=== PATIENT | female | born 1955 | race Caucasian/White ===

== ENCOUNTER → 2017-11-16 | Outpatient (CLI) | payer OTHER ==
[~2017-11-16] MED LIST: AZIT-1 PO; EPIN0.3P15 IM; ESTR42.59 VG; FLU60SYR30 IM ONLY; FLUT16SP19 NS
--- NOTE | 2017-11-16 09:24 | RADIOLOGY IMAGING REPORT ---
FACILITY: [facility] - [place] PATIENT NAME: Michelle Pace : 1955 MR: [id number] V: [id number] EXAM DATE: ORDERING PHYSICIAN: JACLYN GARZA TECHNOLOGIST: Location: [facility] Patient: Michelle Pace : 1955 Visit/Account:[id number] Date of Sevice: 11/16/2017 2 VIEWS CHEST INDICATION: Cough for one month COMPARISON: None available FINDINGS: Heart size within normal limits. There is vague interstitial opacities in a perihilar distribution. No significant bronchial wall thi ckening is noted. No alveolar consolidation. No acute bony finding IMPRESSION: 1. Minimal perihilar interstitial changes which can be seen in the setting of viral bronchitis/atypi amber pneumonitis. No focal alveolar pneumonia or other acute finding Report Dictated By: Fredo Fine MD at 11/16/2017 9:18 AM Report E-Signed By: Fredo Fine MD at 11/16/2017 9:19 AM WSN:[id number]
== END ==
LOC: RAD 08:52
PROVIDERS: ATTEND Emergency Medicine
DX: R05 Cough (principal)
CPT/HCPCS: 71046

== ENCOUNTER → 2017-12-27 | Outpatient (CLI) | payer OTHER | LOC: RESP 01:15 | PROVIDERS: ATTEND Emergency Medicine | DX: G47.33 Obstructive sleep apnea (adult) (pediatric) (principal) ==

== ENCOUNTER → 2018-03-04 | Outpatient (CLI) | payer OTHER | LOC: RESP 20:59 | PROVIDERS: ATTEND Emergency Medicine | DX: G47.33 Obstructive sleep apnea (adult) (pediatric) (principal); G47.61 Periodic limb movement disorder ==

== ENCOUNTER → 2018-04-28 | Outpatient (CLI) | payer OTHER ==
[2018-04-28 08:31] LABS: PLATELET COUNT, AUTOMATED 210 K/uL (150-450)
[2018-04-28 08:46] LABS: LDL CHOLESTEROL 120 mg/dl
== END ==
LOC: LAB 08:16
PROVIDERS: ATTEND Emergency Medicine
DX: R42 Dizziness and giddiness (principal)
CPT/HCPCS: 36415; 82040; 82247; 82306; 82310; 82374; 82435; 82465; 82565; 82947; 83036; 83718; 84075; 84132; 84155; 84295; 84443; 84450; 84460; 84478; 84520; 85025

== ENCOUNTER → 2018-05-09 | Outpatient (CLI) | payer OTHER ==
[~2018-05-09] MED LIST changes: +GADOBENATE 529MG/1ML 15ML VIAL IVP ONE
--- NOTE | 2018-05-09 13:25 | RADIOLOGY IMAGING REPORT ---
FACILITY: [facility] - [place] PATIENT NAME: Michelle Pace : 1955 MR: [id number] V: [id number] EXAM DATE: ORDERING PHYSICIAN: JACLYN GARZA TECHNOLOGIST: Location: [facility] - [place] Patient: Michelle Pace : 1955 Visit/Account:[id number] Date of Sevice: 05/09/2018 BRAIN W W/O CONTRAST Provided history: Dizziness Additional pertinent history: None TECHNIQUE: Multiplanar multisequence brain MRI was performed without and with intravenous contrast Contrast dose: 13 mL of MultiHance. Additional focused sequences: none COMPARISON STUDIES: CT brain 05/20/17 FINDINGS: Brain volume: Normal Acute ischemia: None Chronic cortical and ganglionic ischemia: none significant Hemorrhage: None Masses / edema: None White matter lesions : Single peripheral T2 hyperdensity left frontal lobe is within normal limits. Vessels: There is a vessel that projects over the surface of the posterior left frontal lobe with mi ld T1 hyperintensity on the pregadolinium living series, likely related to flow-related enhancement. I doubt anything more significant. Extra-axial: None Calvarium / scalp: Negative Skull base / infratemporal fossa: negative Visualized sinuses / orbits / upper neck: Moderate rightward deviation nasal septum. No significant paranasal sinus inflammatory disease. There is at least moderate narrowing of the cervical canal C3 -4. A previous spine MRI dated 03/14/08 is off-line and unavailable for comparison. It is also not indicated on the PACS system whether it was a cervical spine or not. IMPRESSION: Normal MR of the brain. No evidence of mass, acute ischemia or hemorrhage. Potentially significant upper cervical canal central stenosis. Correlate with cervical MRI if indica elza. Report Dictated By: Constantine White MD at 05/09/2018 1:11 PM Report E-Signed By: Constantine White MD at 05/09/2018 1:20 PM WSN:[id number]
== END ==
LOC: MRI 01:56
PROVIDERS: ATTEND Emergency Medicine
DX: J34.2 Deviated nasal septum (principal); M48.02 Spinal stenosis, cervical region
CPT/HCPCS: 70553; A9577

== ENCOUNTER → 2018-06-02 | Outpatient (CLI) | payer OTHER ==
[~2018-06-02] MED LIST changes: -GADOBENATE 529MG/1ML 15ML VIAL IVP ONE
--- NOTE | 2018-06-05 21:44 | RT HOLTER TEST ---
FACILITY: [facility] - [place] PATIENT NAME: SARAH CORTEZ : [id number] MR: [id number] V: [id number] EXAM DATE: ORDERING PHYSICIAN: JACLYN GARZA TECHNOLOGIST: Melissa Hook-up date: 2018-06-02 15:12:00 Duration: 27:00:00 Test Indications: NEAR SYNCOPE Medications: in chart [id number] QRS complexes 1 Ventricular ectopics which represent <1 % of total QRS comp. 99 Supraventricular ectopics which represent <1 % of total QRS comp. * Paced QRS complexes which represent % of total QRS comp. VENTRICULAR ECTOPY 1 Isolated 0 Bigeminal Cycles 0 Couplets 0 Runs 0 Beats in Runs * Beats LONGEST at * BPM at :: -- * Beats FASTEST at * BPM at :: -- SUPRAVENTRICULAR ECTOPY 99 Isolated 0 Couplets 0 Runs 0 Beats in Runs * Beats LONGEST at * BPM at :: -- * Beats FASTEST at * BPM at :: -- HEART RATES 49 MIN at 05:25:05 2018-06-03 79 AVG 135 MAX at 14:32:25 2018-06-03 LONGEST RR 1.352 secs at 05:25:01 2018-06-03 S-T LEVELS Channel 1 -12.800 mm MIN at 15:12:00 2018-06-02 -12.800 mm MAX at 15:12:00 2018-06-02 Channel 2 -12.800 mm MIN at 15:12:00 2018-06-02 -12.800 mm MAX at 15:12:00 2018-06-02 Channel 3 -12.800 mm MIN at 15:12:00 2018-06-02 -12.800 mm MAX at 15:12:00 2018-06-02 Normal sinus rhythm Occasional singlet supraventricular ectopic beat Isolated PVC Sinus bradycardia for period likely while sleeping (0200 and 0500) Confirmed by Abilio Lazcano ([id number]) on 06/05/2018 9:43:30 PM Referred By: Overread By: Abilio Stone
== END ==
LOC: RESP 06:55
PROVIDERS: ATTEND Emergency Medicine
DX: I49.3 Ventricular premature depolarization (principal)
CPT/HCPCS: 93225; 93226

== ENCOUNTER → 2018-09-20 | Outpatient (CLI) | payer OTHER ==
[~2018-09-20] MED LIST changes: +FLU60VIA41 IM
== END ==
LOC: US 00:53
PROVIDERS: ATTEND Emergency Medicine
DX: Z02.9 Encounter for administrative examinations, unspecified (principal)

== ENCOUNTER → 2018-10-12 | Outpatient (CLI) | payer OTHER | LOC: US 00:38 | PROVIDERS: ATTEND Emergency Medicine | DX: R55 Syncope and collapse (principal) | CPT/HCPCS: 93306 ==